=== PATIENT | female | born 1965 | race Hispanic/Latino ===

== ENCOUNTER 2016-12-07 23:03 | Emergency (ER) | payer MEDICARE, MEDICAID ==
[~2016-12-07] VITALS: Ht 157.5 cm; Wt 76.8 kg
[~2016-12-07 23:03] MED LIST: CEPH-512 PO; IBUP-1827 PO; ONDA4TAB9 PO; OXYC-245 PO; OXYC1TAB24 PO
[2016-12-07 23:46] VITALS: BP 129/78; PULSE 60; RESP 16; O2SAT 99
--- NOTE | 2016-12-08 00:38 | ED.REPORT ---
HPI-Extremity Problem Upper Date of Service Dec 08, 2016 ED Provider: Cliff Kenny MD The patient is a 50 year old female who presents to the ED c/o right ring finger pain after smashing her hand. Pt reports that her right ring finger feels numb. Nursing Notes Stated Complaint: R RING FINGER INJURY Chief Complaint: Extremity Trauma Nursing Notes Reviewed: Yes Allergies: Coded Allergies: hydrocodone bitartrate (Verified Allergy, Severe, nausea/vomiting, ) Scheduled Cephalexin (Keflex) 500 Mg Capsule 500 MG PO QID Scheduled PRN Ibuprofen (Ibuprofen) 600 Mg Tablet 600 MG PO QID PRN PRN For Pain Ibuprofen (Ibuprofen) 600 Mg Tablet 600 MG PO QID PRN PRN For Pain Ondansetron ODT (Zofran ODT) 4 Mg Tablet 4 MG PO Q4H PRN PRN For Nausea Oxycodone HCl/Acetaminophen (Percocet 10-325 mg Tablet) 1 Each Tablet 1 EACH PO QID PRN PRN For Pain oxyCODONE-Acetaminophen 5-325 mg (oxyCODONE-Acetaminophen 5-325 mg) 1 Each Tablet 2 TAB PO [id number] PRN PRN For Pain General Time Seen by MD: 00:36 Chief Complaint Finger injury right 4 Hx Obtained From: Patient Arrived By: Walk-in Onset Occurred: Just prior to arrival Symptom Duration: Since onset Caused by: Accidental Context: Occurred at: Home injury Location: : Finger right 4 Quality: Painful Severity: Current: Mild Recent Healthcare: No recent doctor visit, No recent hospitalization Similar Sx Previous: No Past Medical History Past Medical History GERD History of kidney stones History of H. Pylori Diverticulitis Past Surgical History Excess skin removal at [facility] 05/16/2015 Hernia repair Reports: Cholecystectomy, Tonsillectomy Reports: Gastric bypass Smoking History Never Smoker Social History Alcohol Use: Denies alcohol use Drug Use: Denies drug use Review of Systems Musculoskeletal: Reports: Extremity pain (right ring finger), Extremity swelling (right ring finger) Skin: Reports Swelling Neurologic: Denies: Change LOC Complete sys rev & neg: except as marked. Physical Exam Initial Vital Signs Vital Signs (First) Date Time Temp Pulse Resp B/P Pulse Ox O2 Delivery O2 Flow Rate FiO2 12/07/16 23:46 36.3 60 16 129/78 99 Room Air Initial VS: Reviewed General/Constitutional: Awake, Alert, Cooperative Upper Extremity / MS: Atraumatic, Inspection NL, No deformity Wrist / Hand: Neurologic intact, Vascular intact Finger Exam : Finger Exam: Positive: Finger name... (R ring), Swelling present..., Tenderness present... preserved inflexion very guarded for pain, unable to fully test function neuro and vascularity normal Skin: Atraumatic, Warm, Dry Neurologic: Oriented X3, Speech NL, No motor deficits Head / Eyes: Atraumatic, Normocephalic, PERRL, EOMI Back: Atraumatic, Inspection NL, Full range of motion Lower Extremity / Pelvis / MS: Atraumatic, Inspection NL, No deformity Ankle / Foot: Atraumatic, Inspection NL, No deformity Interpretation & Diagnostics X-Ray Interpretation Xray Interpretation: IMPRESSION: right ring finger fracture X-Ray Ordered: Hand right Re-Eval/Medical Decision Med Decision/Clinical Course 50-year-old presents with a small fracture sustained in the fall. She has a sliver of displaced bone at the distal end of the proximal phalanx fourth finger left hand. She is in pain but does have some extension some flexion retained. Cannot exclude the possibility of a partial tendon rupture, but does not appear to have complete extensor tendon rupture. Placed in a splint and discharged for follow-up with PCP. Counseled Regarding: Diagnosis, Lab results, Need for follow-up, When/why to return to ED Discharge & Departure Impression: Primary Impression: Finger fracture, right Encounter type: initial encounter Fracture type: closed Qualified Code: S62.609A - Fracture of unspecified phalanx of unspecified finger, initial encounter for closed fracture Disposition: Home Discharge Condition All VS Reviewed: Yes Condition: Stable Additional Instructions: Thank you for entrusting us with your care today. Keep for the finger splinted for the next 2 weeks. Use Tylenol and Ibuprofen as needed for pain. Apply cold packs to help reduce swelling. After twenty-four hours you can switch over to heat. Follow up with your primary care physician. Return to the Emergency Department if you experience any new or worsening symptoms. Referrals: Bharath Frye MD (PCP) Scribe Attestation Portion of this note were transcribed by Elda Toro. I, Dr. Kenny, personally performed the history, physical exam, and medical decision-making: I reviewed and confirmed the accuracy for the information in the transcribed note. Signed by: denita Ford, 12/08/16 0300 copies to: Bharath Frye MD, Christopher W MD Dec 08, 2016 00:38 Elda Toro Dec 08, 2016 00:39
[2016-12-08] MEDS ORDERED: IBUP-1827 PO (00:45)
--- NOTE | 2016-12-08 09:12 | DRSVH ---
PROCEDURE: X-RAY FINGERS, TWO VIEWS INDICATIONS: PAIN TECHNIQUE: AP hand, 2 views of the fourth finger(s) acquired. COMPARISON: None. FINDINGS: Bones: No fractures or dislocations. No suspicious bony lesions. Soft tissues: No suspicious soft tissue calcifications. IMPRESSION: No displaced fracture seen. If there is continued pain, followup exam or additional gilbert ging such as MRI or CT could be performed for further assessment. Dictated by: Roberto Lee RRA Interpreted: La Nena Dallas MD on 12/08/2016 at 9:10 Transcribed by: JAMES on 12/08/2016 at 9:11 Approved by: La Nena Dallas M.D. on 12/08/2016 at 10:14
== END 2016-12-08 01:06 | disposition home or self-care (01) ==
LOC: SED 23:03
DX: S62.614A Displaced fracture of proximal phalanx of right ring finger, initial encounter for closed fracture (principal); W18.39XA Other fall on same level, initial encounter; Y93.89 Activity, other specified; Y92.009 Unspecified place in unspecified non-institutional (private) residence as the place of occurrence of the external cause; Y99.8 Other external cause status; K21.9 Gastro-esophageal reflux disease without esophagitis; Z88.5 Allergy status to narcotic agent